=== PATIENT | female | born 1960 | race Two or more races ===

== ENCOUNTER 2017-02-15 05:48 | Day surgery (SDC) | payer OTHER ==
[2017-02-15] VITALS (12 sets, daily range): BP systolic 111–130; BP diastolic 56–73; PULSE 64–88; RESP 14–20; Ht 165.1 cm; Wt 77.9 kg
[~2017-02-15] VITALS: Ht 165.1 cm; Wt 77.9 kg
[~2017-02-15 05:48] MED LIST: SOD CHLORIDE 0.9% 1,000 ML IV SCH
[2017-02-15] MEDS ORDERED: CEFAZOLIN 2 GM/50 ML (PMX) 50 ML IVPB SCH (06:00)
[2017-02-15] MEDS ORDERED: POLYMYXIN/BACITRACIN 1L IRRIG ONE (06:54)
[2017-02-15] MEDS ORDERED: LAM1CR24 TOP (07:00)
[2017-02-15] MEDS ORDERED: ALBU2.5V3 NEB (07:25)
[2017-02-15] MEDS ORDERED: SUCCINYLCHOLINE CHLORIDE 100 MG/5 ML SYG IV ONE (07:28)
[2017-02-15] MEDS ORDERED: MIDAZOLAM 1 MG/ML 2 ML INJ ONE (07:28)
[2017-02-15] MEDS ORDERED: PROPOFOL 20 ML ONE (07:28)
[2017-02-15] MEDS ORDERED: FENTAnyl 50 MCG/ML VIAL ONE ×2 (07:28→08:52)
[2017-02-15] MEDS ORDERED: CEFAZOLIN 1 GM INJ ONE (07:28)
[2017-02-15] MEDS ORDERED: ROCURONIUM 50 MG INJ ONE (07:28)
[2017-02-15] MEDS ORDERED: LIDOCAINE 2% (SDV) 5 ML INJ ONE (07:28)
--- NOTE | 2017-02-15 07:33 | HPN ---
Date/Time of Note Date/Time of Note DATE: 02/15/17 TIME: 07:33 Interval H&P Admission Note Pt. seen H&P reviewed: No system changes ALEJANDRO GUZMAN MD Feb 15, 2017 07:33
[2017-02-15] MEDS ORDERED: ONDANSETRON 4 MG INJ ONE (07:44)
[2017-02-15] MEDS ORDERED: DEXAMETHASONE 4 MG/ML 1 ML INJ ONE (07:44)
[2017-02-15] MEDS ORDERED: BUPIVACAINE 0.25%/EPI (SDV) 30 ML INJ ONE (07:52)
[2017-02-15] MEDS ORDERED: FENTAnyl 50 MCG/ML VIAL IV PRN (08:00)
[2017-02-15] MEDS ORDERED: MEPERIDINE 25 MG INJ IV PRN (08:00)
[2017-02-15] MEDS ORDERED: PROCHLORPERAZINE 10 MG INJ IV PRN (08:00)
[2017-02-15] MEDS ORDERED: OXYCODONE/ACETAMINOPHEN (5/325) TAB PO PRN ×4 (08:00→09:30)
[2017-02-15] MEDS ORDERED: DIPHENHYDRAMINE 50 MG INJ IV PRN (08:00)
[2017-02-15] MEDS ORDERED: ONDANSETRON 4 MG INJ IV PRN ×2 (08:00→09:30)
[2017-02-15] MEDS ORDERED: HYDROmorphONE (0.2 MG/ML) 10ML SYG IV PRN ×2 (08:00)
[2017-02-15] MEDS ORDERED: GLYCOPYRROLATE 0.4 MG INJ ONE (08:20)
[2017-02-15] MEDS ORDERED: KETOROLAC 30 MG INJ ONE (08:20)
[2017-02-15] MEDS ORDERED: NEOSTIGMINE 3 MG/3 ML SYRINGE ONE (08:20)
--- NOTE | 2017-02-15 09:10 | OPR ---
Date/Time of Note Date/Time of Note DATE: 02/15/17 TIME: 09:05 Operative Report Procedure Date: Feb 15, 2017 Preoperative Diagnosis Ventral hernia Postoperative Diagnosis Ventral hernia Operation Performed Laparoscopic ventral hernia repair Surgeon: ALEJANDRO GUZMAN MD Anesthesia: general Anesthesiologist: MARIVEL CORDOBA MD Estimated Blood Loss: minimal Specimens None Complications: None Pt Condition Post Procedure: stable Disposition: PACU Indications The patient is an obese 56-year-old female who presented to the office complaining of a painful bulge above the umbilicus. She was diagnosed on physical exam as having a supraumbilical ventral hernia which was chronically incarcerated with fat. The patient was scheduled for elective laparoscopic ventral hernia repair with mesh to prevent further sequelae of hernia disease which include, but are not limited to: Incarceration and strangulation. All risks and benefits of the procedure including, but not limited to: Wound infection, excessive bleeding, postoperative seroma/hematoma formation, injury to intra-abdominal organs, hernia recurrence, chronic pain, conversion to open procedure, possible need for subsequent surgery, etc. were all explained to the patient in full detail. She fully understood and wished to proceed with the procedure. Informed consent was obtained. Operative\Procedure Findings Fat-containing supraumbilical ventral hernia Procedure Description The patient was brought to the operating room and placed supine on the operating table. Bilateral sequential compression devices were placed on both lower extremities. A dose of broad-spectrum perioperative intravenous antibiotics was given. After the induction of smooth general endotracheal anesthesia the patient's abdomen was prepped and draped in standard surgical fashion. After performance of the surgical timeout a 5 mm incision was made in the left subcostal area and a Veress needle was used to access the intra- abdominal cavity atraumatically. Pneumoperitoneum was then obtained and the Veress needle was exchanged for a 5 mm trocar through which a 5 mm 30 laparoscope was placed. Two further working ports were placed, a 12 mm port in the anterior axillary line at the level of the umbilicus and another 5 mm port in the left iliac fossa. All port sites were anesthetized with 0.25% Marcaine with epinephrine] prior to incision. Diagnostic laparoscopy showed a lot of intra-abdominal fat. There was fat covering the peritoneum and the underside of the abdominal wall. A small supraumbilical ventral hernia defect was identified containing incarcerated fat. Using atraumatic graspers and the laparoscopic kenneth the hernia contents were reduced back into the peritoneal cavity. The falciform ligament was taken down to provide adequate room for deployment of the mesh. With the hernia completely reduced a piece of 9 cm round Covidien Symbotex mesh was used to repair the hernia defect. The mesh was large enough to cover the hernia defect with adequate overlap. The mesh was soaked in antibiotic irrigation prior to insertion into the field. A marking suture was placed in the middle of the mesh. Using an 11 blade scalpel a small huy was made over the center of the hernia defect and with the suture passer the suture was delivered anchoring the mesh against the anterior abdominal wall. The mesh was then secured in place using a secure strap tacker in a double crown fashion. Pneumoperitoneum was decreased to 10 mmHg during the tacking of the mesh. With the repair complete it was inspected and noted to be hemostatic and tension-free. At this point an EndoClose device was used to close the fascia of the 12 mm port site with 0 Vicryl suture. Pneumoperitoneum was then released and all remaining trochars were withdrawn under direct vision. Subcutaneous tissues were irrigated with more antibiotic containing irrigation. The skin of the incision sites were then reapproximated using 4-0 Monocryl sutures in subcuticular fashion. The incisions were cleaned and Dermabond was applied as well as an abdominal binder. The patient was then awoken from anesthesia and transported to the recovery room in stable condition. All counts were correct at the end of the case x 2. ALEJANDRO GUZMAN MD Feb 15, 2017 09:10
[2017-02-15] MEDS ORDERED: morphine 2 MG INJ IV PRN (09:30)
[2017-02-15] MEDS ORDERED: IBUPROFEN 600 MG TAB PO PRN (09:30)
[2017-02-15] MEDS ORDERED: KETOROLAC 30 MG INJ IV PRN (09:30)
== END 2017-02-15 11:40 | disposition home or self-care (01) ==
LOC: SDS 05:48
PROVIDERS: ATTEND Surgery
DX: K43.9 Ventral hernia without obstruction or gangrene (principal); E66.9 Obesity, unspecified; Z68.28 Body mass index [BMI] 28.0-28.9, adult
CPT/HCPCS: 49652; J0690; J1100; J1885; J2175; J2250; J2405; J2710; J3010; J7999